=== PATIENT | female | born 1985 | race American Indian/Alaskan Native ===

== ENCOUNTER 2016-10-08 08:47 | Outpatient (CLI) | payer MEDICAID ==
[2016-10-08 09:44] LABS: Bacteria,Urine 1+ /HPF (Negative); Bilirubin,Urine NEG (Negative); Blood,Urine NEG (Negative); Ketones,Urine NEG (Negative); Leukocyte Esterase,Urine LG (Negative); Mucus,Urine FEW /HPF; Nitrite,Urine NEG (Negative); Protein,Urine <15 mg/dL mg/dL (Negative); Urobilinogen,Urine < 2.0 mg/dL (<2.0)
[2016-10-08] MEDS ORDERED: LACTATED RINGERS 1,000 ML IV ONE (10:00)
[2016-10-08] MEDS ORDERED: BRETHINE SUB-Q ONE (10:21)
[2016-10-08 11:40] VITALS: BP 114/62
--- NOTE | 2016-10-08 13:55 | Ultrasound Report ---
BIOPHYSICAL PROFILE: History: Vaginal discharge, heart decelerations. Technique: Transabdominal ultrasound with Doppler interrogation. 2 - breathing movements 2 - movements 2 - posture and tone 2 - Qualitative amniotic fluid volume 8 - TOTAL SCORE OF POSSIBLE 8 Heart Rate (bpm) 142
--- NOTE | 2016-10-08 13:56 | Ultrasound Report ---
OB LIMITED Technique: Transabdominal ultrasound with Doppler interrogation. Gestation: Single Position: Breech Amniotic Fluid: Normal BRANDEN = 16.6 cm Heart Rate: 146 BPM
== END 2016-10-08 13:30 | disposition home or self-care (01) ==
LOC: TRG 08:47
PROVIDERS: ATTEND Obstetrics & Gynecology
DX: O32.1XX0 Maternal care for breech presentation, not applicable or unspecified (principal); O26.893 Other specified pregnancy related conditions, third trimester; O42.90 Premature rupture of membranes, unspecified as to length of time between rupture and onset of labor, unspecified weeks of gestation; O76 Abnormality in fetal heart rate and rhythm complicating labor and delivery; O77.9 Labor and delivery complicated by fetal stress, unspecified; Z3A.34 34 weeks gestation of pregnancy
CPT/HCPCS: 59025; 76815; 76819; 81001; 96360; 96372; J3105; J7120

== ENCOUNTER 2016-11-07 19:29 | Outpatient (CLI) | payer MEDICAID ==
[2016-11-07 19:47] VITALS: BP 112/75
== END 2016-11-07 20:17 | disposition home or self-care (01) ==
LOC: TRG 19:29
PROVIDERS: ATTEND Obstetrics & Gynecology
DX: O26.893 Other specified pregnancy related conditions, third trimester (principal); O62.9 Abnormality of forces of labor, unspecified; M54.9 Dorsalgia, unspecified; Z3A.38 38 weeks gestation of pregnancy
CPT/HCPCS: 59025